=== PATIENT | female | born 1945 | race Asian ===

== ENCOUNTER 2018-10-15 22:49 | Inpatient (IN) | END 2018-10-23 19:40 | DRG 640 ==

== ENCOUNTER 2018-10-24 10:51 | Inpatient (IN) | payer MEDICARE, OTHER ==
[~2018-10-24] VITALS: Ht 154.9 cm; Wt 64.8 kg
[~2018-10-24 10:51] MED LIST: AMLO-147 PO; ASPI-817 PO; ATOR20TA38 PO; LISI40TA3 PO; LORA1TAB PO; METO-319 PO; SAXA2.5T PO; SPIR50TA PO; TRAM50TA PO; ZOLP5TAB7 PO
--- NOTE | 2018-10-24 11:23 | ERD ---
ER Documentation Chief Complaint Chief Complaint bleeding oumar cath HPI 73-year-old female presents via EMS. She had a recently placed right chest tunneled Vas-Cath for dialysis. Dialysis is Friday. She has noted bleeding of the last 2 days around the catheter site that is improved. She denies any lightheadedness or dizziness. No other bleeding or bruising. Last dialysis was yesterday. No other complaints. ROS All systems reviewed and are negative except as per history of present illness. Medications Home Meds Reported Medications Saxagliptin Hcl* (Onglyza*) 2.5 Mg Tablet, 2.5 MG PO DAILY, TAB 10/15/18 Atorvastatin Calcium* (Atorvastatin Calcium*) 20 Mg Tablet, 20 MG PO QHS, #30 TAB 10/15/18 Aspirin* (Aspirin* EC) 81 Mg Tablet.dr, 81 MG PO DAILY, TAB 10/15/18 Lisinopril* (Lisinopril*) 40 Mg Tablet, 40 MG PO DAILY, #30 TAB 10/15/18 Amlodipine Besylate* (Amlodipine Besylate*) 10 Mg Tablet, 10 MG PO DAILY, #30 TAB 10/15/18 Metoprolol Succinate* (Toprol XL*) 50 Mg Tab.er.24h, 50 MG PO DAILY, #30 TAB 10/15/18 Tramadol Hcl* (Ultram*) 50 Mg Tablet, 50 MG PO Q12H PRN for PAIN, TAB 10/15/18 Zolpidem Tartrate* (Zolpidem Tartrate*) 5 Mg Tablet, 5 MG PO QHS PRN for INSOMNIA, #30 TAB 10/15/18 Lorazepam* (Lorazepam*) 1 Mg Tablet, 1 MG PO Q12H PRN for ANXIETY, #30 TAB 10/15/18 Spironolactone* (Aldactone*) 50 Mg Tablet, 50 MG PO NEEDED, #30 TAB 18 Allergies Allergies: Coded Allergies: No Known Allergy (Unverified , 10/24/18) PMhx/Soc History of Surgery: Yes (appendectomy 2002) Anesthesia Reaction: No Hx Neurological Disorder: No Hx Respiratory Disorders: No Hx Cardiac Disorders: Yes (htn) Hx Psychiatric Problems: No Hx Miscellaneous Medical Probl: Yes (DM , HTN , ANEMIA , LIYAH, CKD .) Hx Alcohol Use: No Hx Substance Use: No Hx Tobacco Use: No FmHx Family History: No diabetes Physical Exam Vitals Vital Signs Date Temp Pulse Resp B/P (MAP) Pulse Ox O2 O2 Flow FiO2 Time Delivery Rate 10/24/18 98.3 67 16 155/71 97 10:57 (99) Physical Exam General: Well developed, well nourished, no acute distress Head: Normocephalic, atraumatic. Eyes: Pupils equally reactive, EOM intact ENT: Moist mucous membranes Neck: Supple, no lymphadenopathy Respiratory: Lungs clear bilaterally, no distress Cardiovascular: RRR, no murmurs, rubs, or gallops Abdominal: Soft, non-tender, non-distended, no peritoneal signs : Deferred MSK: No edema, no unilateral swelling, 5/5 strength Neurologic: Alert and oriented, moving all extremities, normal speech, no focal weakness, no cerebellar signs Skin: Right chest tunneled Vas-Cath in good position with dried blood and clot around the insertion site, no active bleeding. Psych: Normal mood Result Diagram: 10/24/18 1120 10/24/18 1120 Results 24 hrs Laboratory Tests Test 10/24/18 11:20 White Blood Count 18.2 10^3/ul Red Blood Count 3.22 10^6/ul Hemoglobin 9.4 g/dl Hematocrit 29.5 % Mean Corpuscular Volume 91.6 fl Mean Corpuscular Hemoglobin 29.2 pg Mean Corpuscular Hemoglobin Concent 31.9 g/dl Red Cell Distribution Width 12.5 % Platelet Count 330 10^3/UL Mean Platelet Volume 9.3 fl Immature Granulocytes % 2.500 % Neutrophils % 78.5 % Lymphocytes % 11.6 % Monocytes % 6.9 % Eosinophils % 0.1 % Basophils % 0.4 % Nucleated Red Blood Cells % 0.1 /100WBC Immature Granulocytes # 0.450 10^3/ul Neutrophils # 14.3 10^3/ul Lymphocytes # 2.1 10^3/ul Monocytes # 1.3 10^3/ul Eosinophils # 0.0 10^3/ul Basophils # 0.1 10^3/ul Nucleated Red Blood Cells # 0.0 10^3/ul Prothrombin Time 12.5 Sec Prothrombin Time Ratio 1.0 INR International Normalized Ratio 0.93 Activated Partial Thromboplast Time 29.6 Sec Sodium Level 142 mmol/L Potassium Level 5.0 mmol/L Chloride Level 102 mmol/L Carbon Dioxide Level 25 mmol/L Anion Gap 15 Blood Urea Nitrogen 63 mg/dl Creatinine 3.27 mg/dl Est Glomerular Filtrat Rate mL/min mL/min Glucose Level 127 mg/dl Calcium Level 9.4 mg/dl Current Medications Medications Dose Sig/Kobe Start Time Status Last (Trade) Ordered Route PRN Stop Time Admin Dose Reason Admin 55 ml @ ONCE ONCE 10/24/18 DC 10/24/18 Desmopressin 110 mls/hr IVPB 11:30 12:31 Acetate 20 10/24/18 mcg/ Sodium 11:59 Chloride Cefepime HCl 50 ml @ ONCE STAT 10/24/18 DC 100 mls/hr IVPB 12:27 10/24/18 12:56 Vancomycin 250 ml @ ONCE ONCE 10/24/18 HCl 125 mls/hr IVPB 12:30 10/24/18 14:29 Procedures/MDM Chest x-ray: I reviewed and interpreted a 1 view of the chest Mediastinum: No enlargement Cardiac silhouette: No cardiomegaly Airspace: Clear lung breen bilaterally without evidence of pneumothorax Bones: No evidence of fracture LAB INTERPRETATION: * Elevated white blood cell count of 18.2 with anemia of 9.4 and slight left shift. * End-stage renal disease without hyperkalemia MEDICAL DECISION MAKING: The patient has improving bleeding after insertion of permacath for dialysis. The patient bleeding is likely secondary to poor platelet function in the setting of end-stage renal disease on dialysis. At this time no evidence of active hemorrhage. Patient's bleeding is well controlled without signs of anemia. Basic blood work will be initiated. I believe a dose of DDAVP would be appropriate. Patient can be safely discharged back to assisted living facility. I discussed the case with Dr. Mari, patient's managing physician. ER COURSE: * Dressing was changed. DDAVP provided. * Patient's white blood cell count was noted to be elevated. She has no further bleeding but given elevated white blood cell count, the patient is at risk for systemic infection. * The patient does not meet criteria for Sirs in the emergency room setting. Empiric blood cultures and antibiotics will be appropriate given her comorbidities. Patient will be admitted for culture monitoring. No indication for aggressive fluid resuscitation. * Sepsis criteria not met. CONSULTATION: [None] DISPOSITION PLAN: Accepting care team and consultations: I discussed the current laboratory data, diagnostic imaging and emergency care provided. Admitting team: Dr. Mari Admitting team indication: Insurance directed Departure Diagnosis: Primary Impression: Hemorrhage due to vascular catheter Encounter type: initial encounter Qualified Codes: T82.838A - Hemorrhage due to vascular prosthetic devices, implants and grafts, initial encounter Additional Impressions: Leukocytosis Leukocytosis type: unspecified Qualified Codes: D72.829 - Elevated white blood cell count, unspecified End stage renal disease on dialysis Condition: KARLO Herrera MD Oct 24, 2018 11:23
[2018-10-24] MEDS ORDERED: DESMOPRESSIN 20 MCG in SOD CHLORIDE 0.9% 50 ML IVPB ONE (11:30)
[2018-10-24] MEDS ORDERED: CEFEPIME 2GM/50 ML (PMX) 50 ML IVPB STA (12:27)
[2018-10-24] MEDS ORDERED: VANCOMYCIN 1 GM (PMX) 250 ML IVPB ONE (12:30)
[2018-10-24] MEDS ORDERED: ONDANSETRON 4 MG INJ IV PRN (13:00)
[2018-10-24] MEDS ORDERED: ACETAMINOPHEN 325 MG TAB PO PRN ×2 (13:00→15:30)
[2018-10-24] MEDS ORDERED: LORAZEPAM 1 MG TAB PO PRN (15:30)
[2018-10-24] MEDS ORDERED: METOPROLOL (XL) 50 MG TAB PO SCH (15:30)
[2018-10-24] MEDS ORDERED: BISACODYL (EC) 5 MG TAB PO PRN (15:30)
[2018-10-24] MEDS ORDERED: LOSARTAN 25 MG TAB PO SCH (15:30)
[2018-10-24 15:59] VITALS: Ht 154.9 cm; Wt 64.8 kg
--- NOTE | 2018-10-24 16:56 | QN ---
Documentation Comment [id number] SARAH AZEVEDO MD Oct 24, 2018 16:56
[2018-10-24] MEDS: INSULIN ASPART [NOVOLOG] 3 ML PEN SC SCH ×2 (17:26→21:00)
[2018-10-24] MEDS: CEFTRIAXONE 1 GM/50 ML (PMX) 50 ML IVPB SCH (18:43)
[2018-10-24 20:09] VITALS: BP 139/64; PULSE 66; RESP 18
[2018-10-24] MEDS: ATORVASTATIN 20 MG TAB PO SCH (21:36)
[2018-10-25] MEDS: ACCU-CHEK XX SCH (02:00)
[2018-10-25 02:18] VITALS: BP 156/70; PULSE 75; RESP 18
[2018-10-25] MEDS: INSULIN ASPART [NOVOLOG] 3 ML PEN SC SCH ×4 (08:00→20:59)
[2018-10-25 08:01] VITALS: BP 177/79; PULSE 68; RESP 16
[2018-10-25] MEDS: METOPROLOL (XL) 50 MG TAB PO SCH (08:24)
[2018-10-25] MEDS: LOSARTAN 25 MG TAB PO SCH (08:24)
[2018-10-25] MEDS ORDERED: ENOXAPARIN 30 MG/0.3 ML SYG SC SCH (09:00)
[2018-10-25] MEDS ORDERED: ASPIRIN (EC) 81 MG TAB PO SCH (09:00)
--- NOTE | 2018-10-25 10:36 | HP ---
DATE OF ADMISSION: 10/24/2018 HISTORY OF PRESENT ILLNESS: The patient is a 73-year-old female with a history of hypertension, CKD o n hemodialysis, has a right chest Perm-A-Cath placed. The patient recently was discharged with a bean gnosis of hyperkalemia, diabetes mellitus, hypertension, anemia, proteinuria, arthritis. Patient was seen by Dr. Ba Shea and his impression was nephritis such as pseudogout related with the kidney fu nction superimposed over the preexisting degenerative osteoarthritis. A steroid injection of the lef t knee was given. Patient now presents with bleeding from the Perm-A-Cath site and is being admitted for further management. PAST MEDICAL HISTORY: Hypertension, diabetes mellitus, arthritis and anemia, Perm-A-Cath placement, otitis, DJD, proteinuria. The patient has anemia. ALLERGY HISTORY: NEGATIVE. FAMILY HISTORY: Negative. SOCIAL HISTORY: Negative. MEDICATION HISTORY: Listed as patient is on: 1. Amlodipine. 2. Aspirin. 3. Lipitor. 4. Lisinopril. 5. Loratadine. 6. Metoprolol. 7. Saxagliptin. 8. Aldactone. 9. Tramadol. 10. Ambien. CURRENT MEDICATIONS: Includes the patient is on: 1. Cefepime. 2. One dose of desmopressin 3. Vancomycin 1 dose. 4. Patient is on Tylenol. 5. Aspirin. 6. Lipitor. 7. Bisacodyl. 8. Clonidine. 9. Lovenox daily. 8. Epogen. 9. The patient is on lorazepam. 10. Losartan. 11. Metoprolol. 12. MiraLax. REVIEW OF SYSTEMS: HEENT: Unremarkable. RESPIRATORY: Unremarkable. CARDIOVASCULAR: Unremarkable. ABDOMEN: Unremarkable. EXTREMITIES: No pain. CENTRAL NERVOUS SYSTEM: Unremarkable The bleeding from the Perm-A-Cath site has stopped. PHYSICAL EXAMINATION: GENERAL: The patient is awake. VITAL SIGNS: Stable. HEAD: Atraumatic, normocephalic. Pupils equal, reactive to light. NECK: Supple, no JVD. LUNGS: Clear. CARDIOVASCULAR: S1, S2 normal. ABDOMEN: Soft, nontender. Bowel sounds present. No palpable mass. EXTREMITIES: No cyanosis, clubbing. Edema positive. CENTRAL NERVOUS SYSTEM: The patient is awake, alert, moving both upper and lower extremities. The Pe rm-A-Cath site has no bleeding. LABORATORY DATA: WBC 18.2. IMPRESSION: 1. Rule out acute infection versus steroid injection-induced leukocytosis. 2. Anemia. 3. CKD. 4. Dialysis. 5. Hypertension. 6. Diabetes mellitus. PLAN: To hold aspirin and Lovenox. Follow CBC and the empiric antibiotic has been given. Orders we re done. Dictated By: SARAH AZEVEDO MD BS/NTS Conf#: [id number] DID#: [id number]
--- NOTE | 2018-10-25 10:37 | PN ---
Date/Time of Note Date/Time of Note DATE: 10/25/18 TIME: 10:36 Assessment/Plan VTE Prophylaxis Risk score (from Ns)>0 risk: 4 SCD applied (from [facility] [place] No (ordered) SCD contraindicated: other Pharmacological prophylaxis: NA/contraindicated Pharm contraindication: bleeding Lines/Catheters IV Catheter Type (from [facility]): Permacath Assessment/Plan Hospital Course 1. Hemorrhage due to new vascular catheter, placed 10/21/18. Inpatient no bleeding was seen 2. Sepsis . 3. End stage renal disease on dialysis 4. Overweight 5.Diabetes 6. htn 7. Anemia likely secondary to anemia of chronic disease 8. Proteinuria likely secondary to diabetes 9. hx of left knee pain 10. Hypernatremia Assessment/Plan -c/w HD, -Blood culture is pending -GI prophylaxis Protonix -DVT prophylaxis SCD -c/w [place] for pain - cw Rocephin and Vancomycin - c/w losartan -cw with aspirin/metoprolol -Renally dose all meds -With aspirin/metoprolol/statin Subjective 24 Hr Interval Summary Free Text/Dictation bleeding from catheter. ENT: pain (neck left side) Exam/Review of Systems Vital Signs Vitals Vital Signs Date Temp Pulse Resp B/P (MAP) Pulse Ox O2 O2 Flow FiO2 Time Delivery Rate 10/25/18 98.7 68 16 177/79 97 08:01 (111) 10/24/18 Room Air 14:26 Intake and Output 10/24/18 10/24/18 10/25/18 1515:00 23:00 07:00 IntakeIntake Total 240 ml BalanceBalance 240 ml Exam right chest Permcath Constitutional: alert, oriented Head: normocephalic Neck: supple Respiratory: clear to auscultation Cardiovascular: regular rate and rhythm RUFUS LOGAN Oct 25, 2018 10:37
[2018-10-25] MEDS: POLYETHYLENE GLYCOL 17 GM PACKET GTB PRN (12:11)
[2018-10-25 17:22] VITALS: BP 146/66; PULSE 66; RESP 14
[2018-10-25] MEDS: CEFTRIAXONE 1 GM/50 ML (PMX) 50 ML IVPB SCH (17:53)
[2018-10-25 19:40] VITALS: BP 124/60; PULSE 66; RESP 18
[2018-10-25] MEDS: ATORVASTATIN 20 MG TAB PO SCH (20:51)
[2018-10-25] MEDS: HYDROCODONE/APAP (5/325) TAB PO PRN (21:05)
[2018-10-26] VITALS (18 sets, daily range): BP systolic 91–164; BP diastolic 52–78; PULSE 58–77; RESP 16–19
[2018-10-26] MEDS: ACCU-CHEK XX SCH (02:00)
[2018-10-26] MEDS: INSULIN ASPART [NOVOLOG] 3 ML PEN SC SCH ×4 (08:00→20:33)
[2018-10-26] MEDS: METOPROLOL (XL) 50 MG TAB PO SCH (09:00)
[2018-10-26] MEDS: LOSARTAN 25 MG TAB PO SCH (09:00)
[2018-10-26] MEDS ORDERED: HEPARIN 1000 UNITS/ML 10 ML INJ CATHETER PRN (12:00)
--- NOTE | 2018-10-26 13:12 | CONS ---
DATE OF ADMISSION: 10/24/2018 DATE OF CONSULTATION: 10/26/2018 TYPE OF CONSULTATION: Infectious disease. REASON FOR CONSULTATION: Antibiotic management. HISTORY OF PRESENT ILLNESS: Pam Schulz is a 73-year-old female with numerous problems, who wa s admitted with multiple problems and is being seen for antibiotic management. Her past problems include: 1. Hypertension. 2. Chronic renal disease on hemodialysis, being cared for by Dr. Azevedo. 3. Right chest PermCath. 4. Arthritis. 5. Anemia of chronic disease. Acutely, the patient was discharged recently with a diagnosis of hyperkalemia, diabetes mellitus, hyp ertension, anemia, proteinuria, arthritis. She was seen by Dr. Ba Shea, who felt that she may have pseudogout related to her renal function. Steroid injection of the left knee was given. She now pr esents with bleeding from PermCath and is being admitted for further management. On admission, her w gurvinder count was 18.2, H and H of 9.4 and 29.5, platelet count 330,000 with 79 polys. Today, white cou nt 13.5 with 69 polys. BUN and creatinine is 83/3.71. Her chest x-ray showed mild prominence of the pulmonary vascularity, which was not significantly changed, interval placement of right-sided hemodi alysis catheter. Blood cultures are negative and MRSA screen is negative. PAST MEDICAL HISTORY: Operations as outlined. FAMILY HISTORY: Noncontributory. SOCIAL HISTORY: She does not smoke, drink or abuse drugs. ALLERGIES: NONE TO PENICILLIN, SULFA OR FOODS. MEDICATIONS: Per chart. REVIEW OF SYSTEMS: Noncontributory. PHYSICAL EXAMINATION: GENERAL: The patient has a right chest PermCath which stopped bleeding. SKIN: Without generalized rash. HEENT: Within normal limits. NECK: Supple. LYMPH NODES: None palpable. CHEST: Decreased breath sounds at the bases. HEART: Without murmur or gallop. ABDOMEN: Soft, nontender without organosplenomegaly or masses. EXTREMITIES: Without cyanosis, clubbing or edema. RECTAL AND GENITAL: Deferred. NEUROLOGIC: No focal neurological abnormality. IMPRESSION AND PLAN: The right-sided PermCath has no bleeding at the present time. The patient was given vancomycin and is currently on ceftriaxone for the possibility of sepsis. We will continue her on current therapy and observe. I will dictate my findings to Dr. Azevedo. Dictated By: YAMIL BORRERO MD, JD/MI Conf#: [id number] DID#: [id number] CC: SARAH AZEVEDO MD;*EndCC*
--- NOTE | 2018-10-26 14:50 | PN ---
Date/Time of Note Date/Time of Note DATE: 10/26/18 TIME: 14:46 Assessment/Plan VTE Prophylaxis Risk score (from Ns)>0 risk: 2 SCD applied (from Ns): No SCD contraindicated: low risk/ambulating Pharmacological prophylaxis: NA/contraindicated Pharm contraindication: low risk/ambulating Lines/Catheters IV [facility] ([facility] PERMACATH Assessment/Plan Hospital Course 73 y/o with Hospital Course 1. Bleeding at permacath site , placed 10/21/18. Inpatient no bleeding was seen 2. Sepsis . ? source on borad spectrum abx 3. End stage renal disease on dialysis 4. Overweight 5.Diabetes 6. htn 7. Anemia likely secondary to anemia of chronic disease 8. Proteinuria likely secondary to diabetes 9. hx of left knee pain 10. Hypernatremia Plan -cw rocephin - bld cx neg so far - HD today, bleeding stopped - cw hold ASA/Lovenox - f/u ID recs - wbc downtrending Result Diagram: 10/26/18 0517 10/26/18 0517 Results 24hrs Laboratory Tests Test 10/25/18 17:43 10/25/18 20:53 10/26/18 05:17 10/26/18 08:04 Bedside Glucose 140 138 98 White Blood 13.5 H Count Red Blood Count 2.86 L Hemoglobin 8.3 L Hematocrit 26.5 L Mean Corpuscular 92.7 Volume Mean Corpuscular 29.0 Hemoglobin Mean Corpuscular 31.3 L Hemoglobin [place] nt Red Cell 12.7 Distribution Width Platelet Count 303 Mean Platelet 9.1 Volume Immature 5.400 H Granulocytes % Neutrophils % Segmented 69 Neutrophils % (Manual) Lymphocytes % Lymphocytes % 21 (Manual) Monocytes % Monocytes % 3 (Manual) Eosinophils % Eosinophils % 3 (Manual) Basophils % Basophils % 2 (Manual) Myelocytes % 2 H (Manual) Nucleated Red 0.2 H Blood Cells % Immature 0.730 H Granulocytes # Neutrophils # Lymphocytes 2.8 (Manual) Lymphocytes # Monocytes # Monocytes # 0.4 (Manual) Eosinophils # Basophils # Basophils # 0.2 H (Manual) Myelocytes # 0.2 H Nucleated Red Blood Cells # Platelet NORMAL Estimate Polychromasia 1+ Sodium Level 143 Potassium Level 5.2 H Chloride Level 105 Carbon Dioxide 21 Level Anion Gap 17 H Blood Urea 83 H Nitrogen Creatinine 3.71 H Est Glomerular Filtrat Rate mL/min Glucose Level 110 Lactic Acid 1.1 Level Calcium Level 9.1 Test 10/26/18 12:45 Bedside Glucose 135 Subjective 24 Hr Interval Summary Free Text/Dictation HD today Bleeding stopped no fevers Exam/Review of Systems Vital Signs Vitals Vital Signs Date Temp Pulse Resp B/P (MAP) Pulse Ox O2 O2 Flow FiO2 Time Delivery Rate 10/26/18 77 16 146/72 95 Room Air 13:44 (96) 10/26/18 98.1 13:29 Intake and Output 10/25/18 10/25/18 10/26/18 1515:00 23:00 07:00 IntakeIntake Total 692 ml 710 ml BalanceBalance 692 ml 710 ml Exam right chest Permcath Constitutional: alert, oriented Head: normocephalic Neck: supple Respiratory: clear to auscultation Cardiovascular: regular rate and rhythm Medications Medications Current Medications Diagnostic Test (Pha) (Accu-Chek) 1 ea 02 XX ; Start 10/25/18 at 02:00 Insulin Aspart (Novolog Insulin Pen) NOVOLOG *MODERATE* ALGORITHM WITH MEALS BEDTIME SC Last administered on 10/24/18at 17:26; Admin Dose 6 UNIT; Start 10/24/18 at 18:00 Acetaminophen (Tylenol Tab) 650 mg Q4H PRN PO MILD PAIN(1-3)OR ELEVATED TEMP; Start 10/24/18 at 15:30 Atorvastatin Calcium (Lipitor) 20 mg HS PO Last administered on 10/25/18at 20:51; Admin Dose 20 MG; Start 10/24/18 at 21:00 Bisacodyl (Dulcolax) 5 mg DAILY PRN PO CONSTIPATION Last administered on 10/25/18at 17:53; Admin Dose 5 MG; Start 10/24/18 at 15:30 Epoetin Marcos (Epogen (Esrd)) 3,000 units MoWeFr@17 SC ; Start 10/26/18 at 17:00 Acetaminophen/ Hydrocodone Bitart ([place] (5/325)) 1 tab Q8H PRN PO MODERATE PAIN LEVEL 4-6 Last administered on 10/25/18at 21:05; Admin Dose 1 TAB; Start 10/24/18 at 15:30 Lorazepam (Ativan) 1 mg Q12H PRN PO ANXIETY; Start 10/24/18 at 15:30 Polyethylene Glycol (Miralax) 17 gm DAILY PRN GTB CONSTIPATION Last admin istered on 10/25/18at 12:11; Admin Dose 17 GM; Start 10/24/18 at 15:30 Losartan Potassium (Cozaar) 25 mg DAILY PO Last administered on 10/25/18 08:24; Admin Dose 25 MG; Start 10/25/18 at 09:00 Metoprolol Succinate (Toprol Xl) 50 mg DAILY PO Last administered on 10/25/18at 08:24; Admin Dose 50 MG; Start 10/25/18 at 09:00 Clonidine (Catapres) 0.1 mg Q6H PRN PO SBP > 160; Start 10/24/18 at 17:00 Ceftriaxone Sodium 50 ml @ 100 mls/hr Q24H IVPB Last administered on 10/25/18at 17:53; Admin Dose 100 MLS/HR; Start 10/24/18 at 18:30 Heparin Sodium (Porcine) (Heparin (1000 Units/ml)) 4,500 unit ONCE PRN CATHETER Dialysis Last administered on 10/26/18at 13:42; Admin Dose 4,500 UNIT; Start 10/26/18 at 12:00; Stop 10/26/18 at 23:00 EDI MEJIA MD Oct 26, 2018 14:50
[2018-10-26] MEDS: EPOETIN 3000 UNITS/1 ML INJ (ESRD) SC SCH (17:07)
[2018-10-26] MEDS: HYDROCODONE/APAP (5/325) TAB PO PRN (17:20)
[2018-10-26] MEDS: CEFTRIAXONE 1 GM/50 ML (PMX) 50 ML IVPB SCH (17:49)
[2018-10-26] MEDS: ATORVASTATIN 20 MG TAB PO SCH (20:01)
[2018-10-27] MEDS: ACCU-CHEK XX SCH (02:00)
[2018-10-27 02:17] VITALS: BP 132/59; PULSE 66; RESP 18
[2018-10-27 07:26] VITALS: BP 144/65; PULSE 67; RESP 16
[2018-10-27] MEDS: INSULIN ASPART [NOVOLOG] 3 ML PEN SC SCH ×4 (08:00→20:44)
[2018-10-27] MEDS: METOPROLOL (XL) 50 MG TAB PO SCH (09:12)
[2018-10-27] MEDS: LOSARTAN 25 MG TAB PO SCH (09:13)
[2018-10-27 13:35] VITALS: BP 141/64; PULSE 70; RESP 17
--- NOTE | 2018-10-27 15:12 | CONS ---
Date/Time of Note Date/Time of Note DATE: 10/27/18 TIME: 15:12 Assessment/Plan Assessment/Plan Chief Complaint/Hosp Course Patient is alert feels good denies pain no fevers overnight vital signs stable WBC 14.4 platelets 266 neutrophils 59 Microbiology: Cultures are negative Indwelling's: Right IJ permacath Antimicrobials: Rocephin Chest x-ray revealed mild prominence of the pulmonary vascularity which has not changed significantly. Physical examination: Well-developed fragile elderly [place] woman who is awake in no distress. Head atraumatic normocephalic. Sclera nonicteric neck is supple chest rise symmetrical breath sounds clear diminished bases. Heart: S1- S2. Abdomen soft bowel sounds present. Extremities without cyanosis Assessment: 1. Leukocytosis, likely secondary to steroids injections in her knee 2. End-stage renal disease, hemodialysis dependent 3. Diabetes 4. Hypertension Plan: Patient remains stable, no evidence of acute infectious process we will discontinue antibiotics and monitor her Consultation Date/Type/Reason Admit Date/Time Oct 24, 2018 at 12:56 Initial Consult Date Type of Consult id Exam/Review of Systems Vital Signs Vitals Vital Signs Date Temp Pulse Resp B/P (MAP) Pulse Ox O2 O2 Flow FiO2 Time Delivery Rate 10/27/18 98.1 70 17 141/64 92 Room Air 13:35 (89) Intake and Output 10/26/18 10/26/18 10/27/18 1515:00 23:00 07:00 IntakeIntake Total 720 ml 170 ml 240 ml OutputOutput Total 1700 ml BalanceBalance -980 ml 170 ml 240 ml Medications Medications Current Medications Diagnostic Test (Pha) (Accu-Chek) 1 ea 02 XX ; Start 10/25/18 at 02:00 Insulin Aspart (Novolog Insulin Pen) NOVOLOG *MODERATE* ALGORITHM WITH MEALS BEDTIME SC Last administered on 10/26/18at 17:48; Admin Dose 2 UNIT; Start 10/24/18 at 18:00 Acetaminophen (Tylenol Tab) 650 mg Q4H PRN PO MILD PAIN(1-3)OR ELEVATED TEMP; Start 10/24/18 at 15:30 Atorvastatin Calcium (Lipitor) 20 mg HS PO Last administered on 10/26/18at 20:01; Admin Dose 20 MG; Start 10/24/18 at 21:00 Bisacodyl (Dulcolax) 5 mg DAILY PRN PO CONSTIPATION Last administered on 10/25/18 17:53; Admin Dose 5 MG; Start 10/24/18 at 15:30 Epoetin Marcos (Epogen (Esrd)) 3,000 units MoWeFr@17 SC Last administered on 10/26/18 17:07; Admin Dose 3,000 UNITS; Start 10/26/18 at 17:00 Acetaminophen/ Hydrocodone Bitart ([place] (5/325)) 1 tab Q8H PRN PO MODERATE PAIN LEVEL 4-6 Last administered on 10/26/18 17:20; Admin Dose 1 TAB; Start 10/24/18 at 15:30 Lorazepam (Ativan) 1 mg Q12H PRN PO ANXIETY; Start 10/24/18 at 15:30 Polyethylene Glycol (Miralax) 17 gm DAILY PRN GTB CONSTIPATION Last administered on 10/25/18 12:11; Admin Dose 17 GM; Start 10/24/18 at 15:30 Losartan Potassium (Cozaar) 25 mg DAILY PO Last administered on 10/27/18 09:1 3; Admin Dose 25 MG; Start 10/25/18 at 09:00 Metoprolol Succinate (Toprol Xl) 50 mg DAILY PO Last administered on 10/27/18 09:12; Admin Dose 50 MG; Start 10/25/18 at 09:00 Clonidine (Catapres) 0.1 mg Q6H PRN PO SBP > 160; Start 10/24/18 at 17:00 Ceftriaxone Sodium 50 ml @ 100 mls/hr Q24H IVPB Last administered on 10/26/18 17:49; Admin Dose 100 MLS/HR; Start 10/24/18 at 18:30 KINDRA CHILEL NP Oct 27, 2018 15:12
--- NOTE | 2018-10-27 17:29 | PN ---
Date/Time of Note Date/Time of Note DATE: 10/27/18 TIME: 17:28 Assessment/Plan VTE Prophylaxis Risk score (from [facility] [place]0 risk: 2 SCD applied (from [facility] [place]): No SCD contraindicated: other Pharmacological prophylaxis: other Lines/Catheters IV C[facility]ter Type (from [facility]): perma a cath Assessment/Plan Hospital Course 1. sepsis 2. Anemia. 3. CKD. 4. Dialysis. 5. Hypertension. 6. Diabetes mellitus plan antibiotic Result Diagram: 10/27/18 0525 10/27/18 0525 Results 24hrs Laboratory Tests Test 10/26/18 20:33 10/27/18 05:25 10/27/18 08:07 10/27/18 12:22 Bedside Glucose 162 129 118 White Blood 14.4 H Count Red Blood Count 2.93 L Hemoglobin 8.6 L Hematocrit 27.1 L Mean Corpuscular 92.5 Volume Mean Corpuscular 29.4 Hemoglobin Mean Corpuscular 31.7 L Hemoglobin [place] nt Red Cell 12.5 Distribution Width Platelet Count 266 Mean Platelet 8.9 Volume Immature 5.200 H Granulocytes % Neutrophils % Segmented 59 Neutrophils % (Manual) Band Neutrophils 5 H % (Manual) Lymphocytes % Lymphocytes % 20 (Manual) Reactive 3 H Lymphocytes % (Manual) Monocytes % Monocytes % 4 (Manual) Eosinophils % Eosinophils % 5 (Manual) Basophils % Metamyelocytes % 4 H (manual) Nucleated Red 0.1 H Blood Cells % Immature 0.750 H Granulocytes # Neutrophils # Neutrophils # 8.6 H (Manual) Band Neutrophils 0.7 H # Lymphocytes 2.8 (Manual) Lymphocytes # Reactive 0.4 H Lymphocytes # Monocytes # Monocytes # 0.5 (Manual) Eosinophils # Basophils # Metamyelocytes # 0.5 H Nucleated Red Blood Cells # Platelet NORMAL Estimate Polychromasia 1+ Hypochromasia 1+ Sodium Level 140 Potassium Level 5.2 H Chloride Level 99 Carbon Dioxide 26 Level Anion Gap 15 H Blood Urea 50 #H Nitrogen Creatinine 2.93 H Est Glomerular Filtrat Rate mL/min Glucose Level 120 Calcium Level 9.1 Phosphorus Level 5.7 H Magnesium Level 1.9 Test 10/27/18 17:09 Bedside Glucose 106 Subjective 24 Hr Interval Summary Cardiovascular: no complaints Gastrointestinal: no complaints Exam/Review of Systems Vital Signs Vitals Vital Signs Date Temp Pulse Resp B/P (MAP) Pulse Ox O2 O2 Flow FiO2 Time Delivery Rate 10/27/18 98.1 70 17 141/64 92 Room Air 13:35 (89) Intake and Output 10/26/18 10/26/18 10/27/18 1515:00 23:00 07:00 IntakeIntake Total 720 ml 170 ml 240 ml OutputOutput Total 1700 ml BalanceBalance -980 ml 170 ml 240 ml Exam Respiratory: diminished breath sounds Cardiovascular: regular rate and rhythm Gastrointestinal: soft, bowel sounds (+) Extremities: edema (+) Medications Medications Current Medications Diagnostic Test (Pha) (Accu-Chek) 1 02 XX ; Start 10/25/18 at 02:00 Insulin Aspart (Novolog Insulin Pen) NOVOLOG *MODERATE* ALGORITHM WITH MEALS BEDTIME SC Last administered on 10/26/18 17:48; Admin Dose 2 UNIT; Start 10/24/18 at 18:00 Acetaminophen (Tylenol Tab) 650 mg Q4H PRN PO MILD PAIN(1-3)OR ELEVATED TEMP; Start 10/24/18 at 15:30 Atorvastatin Calcium (Lipitor) 20 mg HS PO Last administered on 10/26/18at 20:01; Admin Dose 20 MG; Start 10/24/18 at 21:00 Bisacodyl (Dulcolax) 5 mg DAILY PRN PO CONSTIPATION Last administered on 12/26/17at 17:53; Admin Dose 5 MG; Start 10/24/18 at 15:30 Epoetin Marcos (Epogen (Esrd)) 3,000 units MoWeFr@17 SC Last administered on 10/26/18 17:07; Admin Dose 3,000 UNITS; Start 10/26/18 at 17:00 Acetaminophen/ Hydrocodone Bitart ([place] (5/325)) 1 tab Q8H PRN PO MODERATE PAIN LEVEL 4-6 Last administered on 10/26/18 17:20; Admin Dose 1 TAB; Start 10/24/18 at 15:30 Lorazepam (Ativan) 1 mg Q12H PRN PO ANXIETY; Start 10/24/18 at 15:30 Polyethylene Glycol (Miralax) 17 gm DAILY PRN GTB CONSTIPATION Last administered on 10/25/18at 12:11; Admin Dose 17 GM; Start 10/24/18 at 15:30 Losartan Potassium (Cozaar) 25 mg DAILY PO Last administered on 12/25/18at 09:13; Admin Dose 25 MG; Start 10/25/18 at 09:00 Metoprolol Succinate (Toprol Xl) 50 mg DAILY PO Last administered on 10/27/18at 09:12; Admin Dose 50 MG; Start 10/25/18 at 09:00 Clonidine (Catapres) 0.1 mg Q6H PRN PO SBP > 160; Start 10/24/18 at 17:00 SARAH AZEVEDO MD Oct 27, 2018 17:29
[2018-10-27 19:21] VITALS: BP 130/62; PULSE 65; RESP 18
[2018-10-27] MEDS: HYDROCODONE/APAP (5/325) TAB PO PRN (19:23)
[2018-10-27] MEDS: ATORVASTATIN 20 MG TAB PO SCH (20:41)
[2018-10-28] VITALS (17 sets, daily range): BP systolic 97–160; BP diastolic 53–72; PULSE 65–85; RESP 15–18
[2018-10-28] MEDS: ACCU-CHEK XX SCH (01:30)
[2018-10-28] MEDS: INSULIN ASPART [NOVOLOG] 3 ML PEN SC SCH ×4 (08:00→20:53)
[2018-10-28] MEDS: LOSARTAN 25 MG TAB PO SCH (09:00)
[2018-10-28] MEDS: METOPROLOL (XL) 50 MG TAB PO SCH (09:00)
[2018-10-28] MEDS: HYDROCODONE/APAP (5/325) TAB PO PRN (09:08)
[2018-10-28] MEDS ORDERED: HEPARIN 1000 UNITS/ML 10 ML INJ CATHETER SCH (10:00)
--- NOTE | 2018-10-28 12:35 | CONS ---
Date/Time of Note Date/Time of Note DATE: 10/28/18 TIME: 12:34 Assessment/Plan Assessment/Plan Hospital Course In hemodialysis looks comfortable no fevers overnight Microbiology: Cultures are negative Indwelling's: Right IJ permacath Chest x-ray revealed mild prominence of the pulmonary vascularity which has not changed significantly. Physical examination: Well-developed fragile elderly [place] woman who is awake in no distress. Head atraumatic normocephalic. Sclera nonicteric neck is supple chest rise symmetrical breath sounds clear diminished bases. Heart: S1- S2. Abdomen soft bowel sounds present. Extremities without cyanosis Assessment: 1. Leukocytosis, likely secondary to steroids injections in her knee 2. End-stage renal disease, hemodialysis dependent 3. Diabetes 4. Hypertension Plan: Patient remains stable, no evidence of acute infectious process, she is off antibiotics, continue present care Result Diagram: 10/27/18 0525 10/27/18 0525 Results 24hrs Laboratory Tests Test 10/27/18 17:09 10/27/18 20:43 10/28/18 08:19 10/28/18 12:12 Bedside Glucose 106 148 132 106 Consultation Date/Type/Reason Admit Date/Time Oct 27, 2018 at 16:36 Initial Consult Date Type of Consult id Exam/Review of Systems Vital Signs Vitals Vital Signs Date Temp Pulse Resp B/P (MAP) Pulse Ox O2 O2 Flow FiO2 Time Delivery Rate 10/28/18 71 12:23 10/28/18 18 119/57 98 Room Air 09:38 (77) 10/28/18 98.2 08:02 Intake and Output 10/27/18 10/27/18 10/28/18 1515:00 23:00 07:00 IntakeIntake Total 360 ml BalanceBalance 360 ml Medications Medications Current Medications Diagnostic Test (Pha) (Accu-Chek) 1 ea 02 XX ; Start 10/25/18 at 02:00 Insulin Aspart (Novolog Insulin Pen) NOVOLOG *MODERATE* ALGORITHM WITH MEALS BEDTIME SC Last administered on 10/26/18at 17:48; Admin Dose 2 UNIT; Start 10/24/18 at 18:00 Acetaminophen (Tylenol Tab) 650 mg Q4H PRN PO MILD PAIN(1-3)OR ELEVATED TEMP; Start 10/24/18 at 15:30 Atorvastatin Calcium (Lipitor) 20 mg HS PO Last administered on 10/27/18 20:41; Admin Dose 20 MG; Start 10/24/18 at 21:00 Bisacodyl (Dulcolax) 5 mg DAILY PRN PO CONSTIPATION Last administered on 10/25/18 17:53; Admin Dose 5 MG; Start 10/24/18 at 15:30 Epoetin Marcos (Epogen (Esrd)) 3,000 units MoWeFr@17 SC Last administered on 10/26/18 17:07; Admin Dose 3,000 UNITS; Start 10/26/18 at 17:00 Acetaminophen/ Hydrocodone Bitart ([place] (5/325)) 1 tab Q8H PRN PO MODERATE PAIN LEVEL 4-6 Last administered on 10/28/18 09:08; Admin Dose 1 TAB; Start 10/24/18 at 15:30 Lorazepam (Ativan) 1 mg Q12H PRN PO ANXIETY; Start 10/24/18 at 15:30 Polyethylene Glycol (Miralax) 17 gm DAILY PRN GTB CONSTIPATION Last administered on 10/25/18 12:11; Admin Dose 17 GM; Start 10/24/18 at 15:30 Losartan Potassium (Cozaar) 25 mg DAILY PO Last administered on 10/27/18 09:13; Admin Dose 25 MG; Start 10/25/18 at 09:00 Metoprolol Succinate (Toprol Xl) 50 mg DAILY PO Last administered on 10/27/18 09:12; Admin Dose 50 MG; Start 10/25/18 at 09:00 Clonidine (Catapres) 0.1 mg Q6H PRN PO SBP > 160; Start 10/24/18 at 17:00 Heparin Sodium (Porcine) (Heparin (1000 Units/ml)) 4,500 unit AFTER DIALYSIS CATHETER ; Start 10/28/18 at 10:00 KINDRA CHILEL NP Oct 28, 2018 12:35
[2018-10-28] MEDS ORDERED: GLUCOSE GEL 15 GRAM TUBE BUCCAL PRN (14:30)
[2018-10-28] MEDS ORDERED: GLUCAGON 1 MG INJ IM PRN (14:30)
[2018-10-28] MEDS ORDERED: GLUCOSE GEL 15 GRAM TUBE PO PRN ×2 (14:30)
[2018-10-28] MEDS ORDERED: DEXTROSE 50% 50 ML SYRINGE IV PRN ×2 (14:30)
--- NOTE | 2018-10-28 15:36 | PN ---
Date/Time of Note Date/Time of Note DATE: 10/28/18 TIME: 15:35 Assessment/Plan VTE Prophylaxis Risk score (from Nsg)>0 risk: 4 SCD applied (from Ns): No SCD contraindicated: low risk/ambulating Pharmacological prophylaxis: NA/contraindicated Pharm contraindication: low risk/ambulating Lines/Catheters IV Catheter Type (from Nrsg): Saline Lock Assessment/Plan Hospital Course 73 y/o with Hospital Course 1. Bleeding at permacath site , placed 10/21/18. Inpatient no bleeding was seen 2. Sepsis . ? source on borad spectrum abx 3. End stage renal disease on dialysis 4. Overweight 5.Diabetes 6. htn 7. Anemia likely secondary to anemia of chronic disease 8. Proteinuria likely secondary to diabetes 9. hx of left knee pain 10. Hypernatremia Plan - WBC 14.4 , DC ABX PER ID - bld cx neg so far - CW HD - cw hold ASA/Lovenox - f/u ID recs - wbc downtrending DC SNIF Result Diagram: 10/27/18 0525 10/27/18 0525 Results 24hrs Laboratory Tests Test 10/27/18 17:09 10/27/18 20:43 10/28/18 08:19 10/28/18 12:12 Bedside Glucose 106 148 132 106 Subjective 24 Hr Interval Summary Free Text/Dictation hd was done today Exam/Review of Systems Vital Signs Vitals Vital Signs Date Temp Pulse Resp B/P (MAP) Pulse Ox O2 O2 Flow FiO2 Time Delivery Rate 10/28/18 74 12:55 10/28/18 18 119/57 98 Room Air 09:38 (77) 10/28/18 98.2 08:02 Intake and Output 10/27/18 10/27/18 10/28/18 1515:00 23:00 07:00 IntakeIntake Total 360 ml BalanceBalance 360 ml Exam Respiratory: diminished breath sounds Cardiovascular: regular rate and rhythm Gastrointestinal: soft, bowel sounds (+) Extremities: edema (+) Medications Medications Current Medications Diagnostic Test (Pha) (Accu-Chek) 1 ea 02 XX ; Start 10/25/18 at 02:00 Insulin Aspart (Novolog Insulin Pen) NOVOLOG *MODERATE* ALGORITHM WITH MEALS BEDTIME SC Last administered on 10/26/18at 17:48; Admin Dose 2 UNIT; Start 10/24/18 at 18:00 Acetaminophen (Tylenol Tab) 650 mg Q4H PRN PO MILD PAIN(1-3)OR ELEVATED TEMP; Start 10/24/18 at 15:30 Atorvastatin Calcium (Lipitor) 20 mg HS PO Last administered on 10/27/18at 20:41; Admin Dose 20 MG; Start 10/24/18 at 21:00 Bisacodyl (Dulcolax) 5 mg DAILY PRN PO CONSTIPATION Last administered on 10/25/18at 17:53; Admin Dose 5 MG; Start 10/24/18 at 15:30 Epoetin Marcos (Epogen (Esrd)) 3,000 units MoWeFr@17 SC Last administered on 10/26/18at 17:07; Admin Dose 3,000 UNITS; Start 10/26/18 at 17:00 Acetaminophen/ Hydrocodone Bitart ([place] (5/325)) 1 tab Q8H PRN PO MODERATE PAIN LEVEL 4-6 Last administered on 10/28/18at 09:08; Admin Dose 1 TAB; Start 10/24/18 at 15:30 Lorazepam (Ativan) 1 mg Q12H PRN PO ANXIETY; Start 10/24/18 at 15:30 Polyethylene Glycol (Miralax) 17 gm DAILY PRN GTB CONSTIPATION Last administered on 10/25/18at 12:11; Admin Dose 17 GM; Start 10/24/18 at 15:30 Losartan Potassium (Cozaar) 25 mg DAILY PO Last administered on 10/27/18at 09:13; Admin Dose 25 MG; Start 10/25/18 at 09:00 Metoprolol Succinate (Toprol Xl) 50 mg DAILY PO Last administered on 10/27/18at 09:12; Admin Dose 50 MG; Start 10/25/18 at 09:00 Clonidine (Catapres) 0.1 mg Q6H PRN PO SBP > 160; Start 10/24/18 at 17:00 Heparin Sodium (Porcine) (Heparin (1000 Units/ml)) 4,500 unit AFTER DIALYSIS CATHETER Last administered on 10/28/18 13:09; Admin Dose 4,500 UNIT; Start 10/28/18 at 10:00 Miscellaneous Information 1 ea NOTE XX ; Start 10/28/18 at 14:30 Glucose (Glutose) 15 gm Q15M PRN PO DECREASED GLUCOSE; Start 10/28/18 at 14:30 Glucose (Glutose) 22.5 gm Q15M PRN PO DECREASED GLUCOSE; Start 10/28/18 at 14:30 Dextrose (D50w Syringe) 25 ml Q15M PRN IV DECREASED GLUCOSE; Start 10/28/18 at 14:30 Dextrose (D50w Syringe) 50 ml Q15M PRN IV DECREASED GLUCOSE; Start 10/28/18 at 14:30 Glucagon (Glucagen) 1 mg Q15M PRN IM DECREASED GLUCOSE; Start 10/28/18 at 14:30 Glucose (Glutose) 15 gm Q15M PRN BUCCAL DECREASED GLUCOSE; Start 10/28/18 at 14:30 EDI MEJIA MD Oct 28, 2018 15:36
--- NOTE | 2018-10-28 15:37 | PDOCDIS ---
Discharge Instructions DIAGNOSIS Discharge Diagnosis BLEEDING PERMCATH LEUKOCYTSIS CONDITION [id number] Patient Condition: [id number] Fair HOME CARE INSTRUCTIONS: [id number] Special Diet: Humuc0t RENAL ACTIVITY: [id number] Activity Restrictions: [id number] Slowly Increase Activity Rest between Activity Avoid heavy lifting FOLLOW UP/APPOINTMENTS Follow-up Plan F/U hd TTS F/U pcp in 1 week EDI MEJIA MD Oct 28, 2018 15:37
[2018-10-28] MEDS ORDERED: ATOR20TA65 PO (15:39)
[2018-10-28] MEDS ORDERED: LOSA25TA2 PO (15:39)
[2018-10-28] MEDS ORDERED: EPOE3000 SC (15:39)
[2018-10-28] MEDS: EPOETIN 3000 UNITS/1 ML INJ (ESRD) SC SCH (17:30)
[2018-10-28] MEDS: ATORVASTATIN 20 MG TAB PO SCH (20:53)
[2018-10-28] MEDS: POLYETHYLENE GLYCOL 17 GM PACKET GTB PRN (20:53)
[2018-10-29] MEDS: HYDROCODONE/APAP (5/325) TAB PO PRN
[2018-10-29 02:00] VITALS: BP 122/63; PULSE 68; RESP 18
[2018-10-29] MEDS: ACCU-CHEK XX SCH (02:00)
[2018-10-29] MEDS: INSULIN ASPART [NOVOLOG] 3 ML PEN SC SCH ×2 (07:56→12:00)
[2018-10-29 07:59] VITALS: BP 149/63; PULSE 67; RESP 18
[2018-10-29 08:04] VITALS: BP 149/63; PULSE 67; RESP 18
[2018-10-29] MEDS: METOPROLOL (XL) 50 MG TAB PO SCH (08:39)
[2018-10-29] MEDS: LOSARTAN 25 MG TAB PO SCH (08:39)
--- NOTE | 2018-10-29 15:19 | CONS ---
Date/Time of Note Date/Time of Note DATE: 10/29/18 TIME: 15:18 Assessment/Plan Assessment/Plan Hospital Course 1245 Awake, looks comfortable, no fevers Microbiology: Cultures are negative Indwelling's: Right IJ permacath Chest x-ray revealed mild prominence of the pulmonary vascularity which has not changed significantly. Physical examination: Well-developed fragile elderly [place]an woman who is awake in no distress. Head atraumatic normocephalic. Sclera nonicteric neck is supple chest rise symmetrical breath sounds clear diminished bases. Heart: S1- S2. Abdomen soft bowel sounds present. Extremities without cyanosis Assessment: 1. Leukocytosis, likely secondary to steroids injections in her knee 2. End-stage renal disease, hemodialysis dependent 3. Diabetes 4. Hypertension Plan: Patient remains stable, pending dc to acute rehab Result Diagram: 10/27/18 0525 10/27/18 0525 Results 24hrs Laboratory Tests Test 10/28/18 17:29 10/28/18 20:40 10/29/18 07:55 10/29/18 12:10 Bedside Glucose 126 169 107 112 Consultation Date/Type/Reason Admit Date/Time Oct 27, 2018 at 16:36 Initial Consult Date Type of Consult id Exam/Review of Systems Vital Signs Vitals Vital Signs Date Temp Pulse Resp B/P (MAP) Pulse Ox O2 O2 Flow FiO2 Time Delivery Rate 10/29/18 97.9 67 18 149/63 90 08:04 (91) 10/29/18 Room Air 07:59 Intake and Output 10/28/18 10/28/18 10/29/18 1515:00 23:00 07:00 IntakeIntake Total 960 ml 480 ml OutputOutput Total 2100 ml BalanceBalance -1140 ml 480 ml KINDRA CHILEL NP Oct 29, 2018 15:19
--- NOTE | 2018-11-12 20:28 | DS ---
DATE OF ADMISSION: 10/27/2018 DATE OF DISCHARGE: 10/29/2018 HISTORY OF PRESENT ILLNESS AND HOSPITAL COURSE: A 73-year-old female with history of hypertension, h emodialysis, right chest Perm-A-Cath placed. The patient was recently discharged with a diagnosis of hyperkalemia, diabetes, hypertension, anemia, proteinuria. The patient was also seen by Dr. Shea for knee pseudogout related to kidney function. A steroid injection was given to the left knee. The nahum logan presented to the emergency department after was noted to have bleeding from the Perm-A-Cath sit e as the patient was discharged to the SNF. On admission, vital signs were stable. White count was 18.2; however, the patient recently got steroid injection to the knee. BUN was 63, creatinine was 3. 27, potassium was 5.0. The patient also had a chest x-ray which was a mild prominence of pulmonary v ascularity. The patient was continued on hemodialysis while in the hospital. The bleeding from the Perm-A-Cath stopped. The patient was also seen by ID consultation with Dr. Smith. Their recommenda tions were followed. Leukocytosis was thought secondary to steroid injections in her knee. The yazmin ent also had blood cultures that were negative. Vital signs are all stable. White count came down t o 14.4. The patient was continued on hemodialysis while in the hospital. Currently stable to be dis charged back to rehab [facility]. FINAL DISCHARGE DIAGNOSES: 1. Bleeding at Perm-A-Cath site, in the patient, no bleeding was seen, which was stopped. 2. Leukocytosis, likely secondary to steroid injection. 3. End-stage renal disease on hemodialysis. 4. Overweight. 5. Diabetes. 6. Hypertension. 7. Anemia, likely secondary to anemia of chronic disease. 8. Proteinuria, likely secondary to diabetes. 9. History of left knee pain secondary to osteoarthritis. DISCHARGE CONDITION: Stable. DISCHARGE MEDICATIONS: 1. Lipitor 20. 2. Epogen 3000 Friday, Friday and Friday. 3. Losartan 25. 4. Lorazepam. 5. Metoprolol 50 daily. 6. Onglyza 2.5 daily. 7. Tramadol 50. 8. Zolpidem 5. The patient will not require any antibiotics as per ID. Dictated By: EDI CONTRERAS/MI Conf#: [id number] [facility]#: [id number]
== END 2018-10-29 13:35 | DRG 314 ==
LOC: E/R 10:51 → 2NE 12:56 → INTOOBSV 12:56 → OBSVTOIN 10-27 16:36
PROVIDERS: ADMIT Internal Medicine Nephrology; ATTEND Internal Medicine Nephrology
PROC: 5A1D70Z Performance of Urinary Filtration, Intermittent, Less than 6 Hours Per Day (ICD-10-PCS; principal; 2018-10-26)
DX: T82.838A Hemorrhage due to vascular prosthetic devices, implants and grafts, initial encounter (principal); N18.6 End stage renal disease; E87.0 Hyperosmolality and hypernatremia; I12.0 Hypertensive chronic kidney disease with stage 5 chronic kidney disease or end stage renal disease; Z99.2 Dependence on renal dialysis; D72.829 Elevated white blood cell count, unspecified; D63.8 Anemia in other chronic diseases classified elsewhere; M11.262 Other chondrocalcinosis, left knee; E66.3 Overweight; Z68.27 Body mass index [BMI] 27.0-27.9, adult; E11.9 Type 2 diabetes mellitus without complications
CPT/HCPCS: 36415; 71045; 80048; 80053; 82962; 83605; 83735; 84100; 85025; 85610; 85730; 87040; 87081; 90935; 99217; G0378; J0692; J0696; J0886; J1644; J1815; J2597; J3370